=== PATIENT | female | born 1995 | race Hispanic/Latino ===

== ENCOUNTER 2018-03-01 04:10 | Emergency (ER) | payer MEDICAID, OTHER ==
[2018-03-01 05:49] LABS: BILIRUBIN,URINE Negative (NEGATIVE); COLOR,URINE Dark Yellow (YELLOW); GLUCOSE, URINE (UA) Negative (NEGATIVE); KETONES,URINE 40 mg/dL (NEGATIVE); LEUKOCYTE ESTERASE ,URINE Negative (NEGATIVE); NITRATE,URINE Negative (NEGATIVE); OCCULT BLOOD,URINE Negative (NEGATIVE); PH,URINE 5.5 (5.0-8.0); PROTEIN,URINE Trace (NEGATIVE)
[2018-03-01 06:00] LABS: HCG,QUAL RESULT NEGATIVE (NEGATIVE)
[2018-03-01 06:01] LABS: APPEARANCE,URINE HAZY (CLEAR)
[2018-03-01 06:09] LABS: AMORPHOUS SEDIMENT,UR Few /LPF (None Seen); BACTERIA,URINE Few /HPF (None Seen); MUCUS,URINE Many LPF (None Seen); RBC,URINE None Seen /HPF (0-1)
== END 2018-03-01 06:19 | disposition home or self-care (01) ==
LOC: EDH 04:10
DX: S46.811A Strain of other muscles, fascia and tendons at shoulder and upper arm level, right arm, initial encounter (principal); I10 Essential (primary) hypertension; J45.909 Unspecified asthma, uncomplicated; Z88.0 Allergy status to penicillin; Z72.0 Tobacco use; X58.XXXA Exposure to other specified factors, initial encounter; Y93.89 Activity, other specified; Y92.098 Other place in other non-institutional residence as the place of occurrence of the external cause; Y99.8 Other external cause status
CPT/HCPCS: 73030; 81001; 81025

== ENCOUNTER 2020-11-09 01:11 | Inpatient (IN) | payer MEDICAID ==
[~2020-11-09] VITALS: Ht 154.9 cm; Wt 113.4 kg
[2020-11-09] MEDS ORDERED: DIPH,PERTUSS(ACELL),TET VAC/PF 0.5 ML VIAL IM PRN (02:00)
[2020-11-09] MEDS ORDERED: MEASLES/MUMPS/RUBELLA VACCINE, LIVE 0.5 ML/VIAL SQ PRN (02:00)
[2020-11-09] MEDS ORDERED: LANOLIN 30GM OINTMENT TP PRN (02:00)
[2020-11-09] MEDS ORDERED: BENZOCAINE/LANOLIN/ALOE VERA 60 ML AEROSOL TP PRN (02:00)
[2020-11-09] MEDS ORDERED: ACETAMINOPHEN 325 MG TAB PO PRN (02:00)
[2020-11-09] MEDS ORDERED: WITCH HAZEL 1 PAD TP PRN (02:00)
[2020-11-09] MEDS ORDERED: LACTATED RINGERS 1000ML 1,000 ML IV PRN (02:00)
[2020-11-09 02:05] LABS: HEMATOCRIT 35.4 % (36-48); MEAN CORPUSCULAR HEMOGLOBIN 25.9 pg (27.0-33.0); MEAN CORPUSCULAR HGB CONC 31.6 g/dL (32.0-36.0); MEAN CORPUSCULAR VOLUME 81.9 fL (79-99); RED BLOOD CELL COUNT(AUTO) 4.32 MIL/uL (4.00-5.50); RED CELL DISTRIBUTION WIDTH 17.5 % (11.0-15.5)
[2020-11-09 02:12] LABS: INR 0.95 (0.85-1.15); PROTHROMBIN TIME 10.2 SEC (9.6-11.6)
[2020-11-09 02:17] LABS: CREATININE 0.7 mg/dL (0.5-1.5); POTASSIUM 3.2 mmol/L (3.5-5.1)
[2020-11-09 02:22] LABS: ALBUMIN 2.3 g/dL (3.5-5.0); BILIRUBIN,TOTAL 0.4 mg/dL (0.2-1.0); TOTAL PROTEIN, SERUM 6.6 g/dL (6.0-8.3); URIC ACID 6.1 mg/dL (2.6-7.2)
[2020-11-09 03:01] LABS: APPEARANCE,URINE TURBID (CLEAR); BILIRUBIN,URINE SMALL (NEGATIVE); COLOR,URINE RED (YELLOW); GLUCOSE, URINE (UA) 100 mg/dL (NEGATIVE); KETONES,URINE 40 mg/dL (NEGATIVE); LEUKOCYTE ESTERASE ,URINE SMALL (NEGATIVE); NITRATE,URINE POSITIVE (NEGATIVE); OCCULT BLOOD,URINE LARGE (NEGATIVE); PH,URINE 6.5 (5.0-8.0); PROTEIN,URINE >=300 mg/dL (NEGATIVE)
[2020-11-09 03:03] LABS: AMPHET/METH SCREEN,URINE NEGATIVE (NEGATIVE); BARBITURATE SCREEN, URINE NEGATIVE (NEGATIVE); BENZODIAZEPINES SCREEN,URINE POSITIVE (NEGATIVE); CANNABINOID SCREEN,URINE NEGATIVE (NEGATIVE); COCAINE SCREEN,URINE POSITIVE (NEGATIVE); OPIATE SCREEN,URINE NEGATIVE (NEGATIVE); PHENCYCLIDINE SCREEN,URINE NEGATIVE (NEGATIVE)
[2020-11-09 03:06] LABS: BACTERIA,URINE None Seen /HPF (None Seen); RBC,URINE >100 /HPF (0-1); SQUAMOUS EPITHELIAL CELL,UR Rare /HPF (0-2)
[2020-11-09] MEDS: ACETAMINOPHEN WITH CODEINE 1 TAB TAB PO PRN ×2 (03:13→18:54)
[2020-11-09] MEDS: OXYTOCIN-LR 20 UNITS/1000 ML 1,000 ML IV SCH ×2 (03:23→20:23)
[2020-11-09] MEDS ORDERED: LEVOFLOXACIN 500 MG/D5W 100 ML 100 ML IV SCH ×2 (03:45→07:15)
[2020-11-09 04:25] VITALS: BP 133/53
[2020-11-09] MEDS ORDERED: ESCI20TA38 PO (05:48)
[2020-11-09] MEDS ORDERED: MELO-108 PO (05:48)
[2020-11-09] MEDS ORDERED: QUET100T34 PO (05:48)
[2020-11-09] MEDS ORDERED: CLON1TAB23 PO (05:48)
[2020-11-09] MEDS ORDERED: LURA40TA PO (05:48)
[2020-11-09] MEDS ORDERED: FERRALET PO (05:48)
[2020-11-09] MEDS ORDERED: PNV#1CAP15 PO (05:48)
[2020-11-09 07:36] VITALS: BP 127/63
[2020-11-09 08:23] LABS: RAPID PLASMA REAGIN NONREACTIVE (NONREACTIVE)
[2020-11-09] MEDS: DOCUSATE SODIUM 100 MG CAP PO SCH ×2 (10:03→20:39)
[2020-11-09] MEDS: IBUPROFEN 600 MG TABLET PO PRN (10:04)
[2020-11-09 11:26] VITALS: BP 110/69
[2020-11-09 16:00] VITALS: BP 128/65
[2020-11-09] MEDS ORDERED: FLU VACC QS2020-21(6MOS UP)/PF 60 MCG/0.5 ML ML IM ONE ×2 (18:58→20:00)
[2020-11-09 19:50] VITALS: BP 118/75
[2020-11-09 23:00] VITALS: BP 127/81
[2020-11-10 03:10] VITALS: BP 132/83
[2020-11-10 07:17] LABS: HEPATITIS Bs ANTIGEN SCREEN P Negative (Negative)
[2020-11-10 07:25] VITALS: BP 117/79
[2020-11-10] MEDS ORDERED: LEVOFLOXACIN 500 MG/D5W 100 ML 100 ML IV SCH (09:00)
[2020-11-10] MEDS: DOCUSATE SODIUM 100 MG CAP PO SCH (09:37)
[2020-11-10] MEDS: IBUPROFEN 600 MG TABLET PO PRN (09:38)
[2020-11-10 11:04] VITALS: BP 117/67
== END 2020-11-10 15:20 | disposition home or self-care (01) | DRG 560 ==
LOC: LDH 01:11 → WSH 04:20
PROVIDERS: ADMIT Specialist; ATTEND Specialist
PROC: 3E02340 Introduction of Influenza Vaccine into Muscle, Percutaneous Approach (ICD-10-PCS; principal; 2020-11-09)
PROC: 3E0234Z Introduction of Serum, Toxoid and Vaccine into Muscle, Percutaneous Approach (ICD-10-PCS; 2020-11-09)
PROC: 3E0134Z Introduction of Serum, Toxoid and Vaccine into Subcutaneous Tissue, Percutaneous Approach (ICD-10-PCS; 2020-11-09)
DX: Z39.0 Encounter for care and examination of mother immediately after delivery (principal); F90.9 Attention-deficit hyperactivity disorder, unspecified type; F31.9 Bipolar disorder, unspecified; F41.9 Anxiety disorder, unspecified; Z37.0 Single live birth; Z88.0 Allergy status to penicillin; Z23 Encounter for immunization; O99.345 Other mental disorders complicating the puerperium; O99.53 Diseases of the respiratory system complicating the puerperium; J45.909 Unspecified asthma, uncomplicated
CPT/HCPCS: 36415; 80053; 80305; 81001; 84550; 85027; 85384; 85610; 85730; 86592; 86701; 86850; 86900; 86901; 87088; 87340; 87390; 90715; A4351; G0378; J1956; J2590; Q2035

== ENCOUNTER 2022-02-01 10:08 | Emergency (ER) | payer MEDICAID ==
[~2022-02-01] VITALS: Ht 154.9 cm; Wt 81.6 kg
[~2022-02-01 10:08] MED LIST: CLON1TAB23 PO; ESCI20TA38 PO; FERRALET PO; LURA40TA2 PO; MELO-108 PO; PNV#1CAP15 PO; QUET100T34 PO
[2022-02-01 10:42] LABS: EOSINOPHILS % (AUTO) 3.3 % (0.0-8.0); HEMATOCRIT 41.3 % (36-48); LYMPHOCYTES % (AUTO) 26.8 % (21.0-51.0); MEAN CORPUSCULAR HEMOGLOBIN 26.3 pg (27.0-33.0); MEAN CORPUSCULAR VOLUME 82.3 fL (79-99); MONOCYTES % (AUTO) 7.2 % (3.0-13.0); NEUTROPHILS % (AUTO) 61.2 % (40.0-77.0); PLATELET COUNT (AUTO) 298 K/uL (130-400); RED BLOOD CELL COUNT(AUTO) 5.02 MIL/uL (4.00-5.50); RED CELL DISTRIBUTION WIDTH 14.3 % (11.0-15.5); WHITE BLOOD COUNT (AUTO) 5.8 K/uL (4.8-10.8)
[2022-02-01 10:45] LABS: APPEARANCE,URINE CLEAR (CLEAR); BILIRUBIN,URINE NEGATIVE (NEGATIVE); COLOR,URINE YELLOW (YELLOW); GLUCOSE, URINE (UA) NEGATIVE (NEGATIVE); KETONES,URINE NEGATIVE (NEGATIVE); LEUKOCYTE ESTERASE ,URINE SMALL (NEGATIVE); NITRATE,URINE NEGATIVE (NEGATIVE); OCCULT BLOOD,URINE LARGE (NEGATIVE); PROTEIN,URINE NEGATIVE (NEGATIVE); UROBILINOGEN,URINE 0.2 mg/dL (0.2-1.0)
[2022-02-01] MEDS ORDERED: LEVETIRACETAM 500 MG/5 ML SD VIAL IV STA (10:46)
[2022-02-01 10:54] LABS: AMPHET/METH SCREEN,URINE NEGATIVE (NEGATIVE); BARBITURATE SCREEN, URINE NEGATIVE (NEGATIVE); BENZODIAZEPINES SCREEN,URINE NEGATIVE (NEGATIVE); CANNABINOID SCREEN,URINE NEGATIVE (NEGATIVE); COCAINE SCREEN,URINE NEGATIVE (NEGATIVE); OPIATE SCREEN,URINE NEGATIVE (NEGATIVE); PHENCYCLIDINE SCREEN,URINE NEGATIVE (NEGATIVE)
[2022-02-01] MEDS ORDERED: LEVETIRACETAM 500 MG in 0.9%NACL 100ML 100 ML IV SCH (11:00)
[2022-02-01 11:07] LABS: PHENYTOIN (DILANTIN) 7.1 mcg/mL (10.0-20.0)
[2022-02-01 11:23] LABS: ALANINE AMINOTRANSFERASE 169 U/L (12-78); ALBUMIN 3.3 g/dL (3.5-5.0); ASPARTATE AMINOTRANSFERASE 77 U/L (10-37); BILIRUBIN,TOTAL 0.1 mg/dL (0.2-1.0); CARBAMAZEPINE (TEGRETOL) < 0.5 mcg/mL (4.0-12.0); CARBON DIOXIDE 27 mmol/L (21-32); CHLORIDE 106 mmol/L (101-111); CREATININE 0.7 mg/dL (0.5-1.5); GLOMERULAR FILTR. RATE CALC 109 mL/min (>60); GLUCOSE,RANDOM 88 mg/dL (70-105); PHENOBARBITAL < 1 mcg/mL (15-40); POTASSIUM 4.4 mmol/L (3.5-5.1); SODIUM SERUM 140 mmol/L (136-145); TOTAL PROTEIN, SERUM 7.4 g/dL (6.0-8.3); UREA NITROGEN, BLOOD 14 mg/dL (7-18)
[2022-02-01 11:25] LABS: VALPROIC ACID < 3 mcg/mL (50-100)
[2022-02-01 11:33] LABS: RBC,URINE 0-1 /HPF (0-1); WBC,URINE 0-1 /HPF (0-1)
[2022-02-01 11:34] LABS: BACTERIA,URINE Few /HPF (None Seen)
[2022-02-01 12:37] VITALS: BP 133/79
== END 2022-02-01 12:39 | disposition home or self-care (01) ==
LOC: EDH 10:08
DX: G40.909 Epilepsy, unspecified, not intractable, without status epilepticus (principal); K76.0 Fatty (change of) liver, not elsewhere classified; J45.909 Unspecified asthma, uncomplicated; F31.9 Bipolar disorder, unspecified; F20.9 Schizophrenia, unspecified; Z79.1 Long term (current) use of non-steroidal anti-inflammatories (NSAID); Z88.0 Allergy status to penicillin
CPT/HCPCS: 36415; 80053; 80156; 80164; 80184; 80185; 80305; 81001; 85025; 96374; 99284; J1953

== ENCOUNTER 2022-02-08 13:53 | Emergency (ER) | payer MEDICAID ==
[~2022-02-08] VITALS: Ht 154.9 cm; Wt 86.2 kg
[2022-02-08 13:56] VITALS: BP 117/84
[2022-02-08] MEDS ORDERED: ACETAMINOPHEN 500 MG TABLET PO ONE (14:30)
[2022-02-08] MEDS ORDERED: TETANUS/DIPHTHERIA TOXOID [ADULT] 0.5 ML VIAL IM ONE (14:30)
[2022-02-08 14:44] LABS: BASOPHILS % (AUTO) 0.9 % (0.0-5.0); EOSINOPHILS % (AUTO) 2.3 % (0.0-8.0); HEMATOCRIT 34.4 % (36-48); MEAN CORPUSCULAR HEMOGLOBIN 26.2 pg (27.0-33.0); MEAN CORPUSCULAR HGB CONC 31.4 g/dL (32.0-36.0); MEAN CORPUSCULAR VOLUME 83.3 fL (79-99); NEUTROPHILS % (AUTO) 69.3 % (40.0-77.0); PLATELET COUNT (AUTO) 334 K/uL (130-400); RED BLOOD CELL COUNT(AUTO) 4.13 MIL/uL (4.00-5.50); RED CELL DISTRIBUTION WIDTH 14.8 % (11.0-15.5); WHITE BLOOD COUNT (AUTO) 6.4 K/uL (4.8-10.8)
[2022-02-08 14:52] LABS: CARBON DIOXIDE 24 mmol/L (21-32); CHLORIDE 110 mmol/L (101-111); CREATININE 0.7 mg/dL (0.5-1.5); GLOMERULAR FILTR. RATE CALC 109 mL/min (>60); GLUCOSE,RANDOM 88 mg/dL (70-105); POTASSIUM 4.1 mmol/L (3.5-5.1); SODIUM SERUM 141 mmol/L (136-145); UREA NITROGEN, BLOOD 24 mg/dL (7-18)
[2022-02-08 14:56] LABS: ALANINE AMINOTRANSFERASE 129 U/L (12-78); ALBUMIN 2.8 g/dL (3.5-5.0); ASPARTATE AMINOTRANSFERASE 88 U/L (10-37); PHENYTOIN (DILANTIN) 3.1 mcg/mL (10.0-20.0); TOTAL PROTEIN, SERUM 6.2 g/dL (6.0-8.3)
[2022-02-08] MEDS ORDERED: IBUP-2070 PO (15:12)
[2022-02-08] MEDS ORDERED: LEVETIRACETAM 500 MG/5 ML SD VIAL IV ONE (15:16)
[2022-02-08 15:17] LABS: BILIRUBIN,TOTAL < 0.1 mg/dL (0.2-1.0)
[2022-02-08] MEDS ORDERED: PHENYTOIN 100MG (50MG/ML) INJ 100 MG/2 ML ML IV SCH (15:30)
[2022-02-08] MEDS ORDERED: PHENYTOIN SODIUM 100 MG ERCAP PO SCH (16:30)
[2022-02-08] MEDS ORDERED: LEVETIRACETAM 1,500 MG in 0.9%NACL 100ML 100 ML IV SCH (22:00)
== END 2022-02-08 16:59 | disposition home or self-care (01) ==
LOC: EDH 13:53
DX: S16.1XXA Strain of muscle, fascia and tendon at neck level, initial encounter (principal); S30.0XXA Contusion of lower back and pelvis, initial encounter; S00.81XA Abrasion of other part of head, initial encounter; R56.9 Unspecified convulsions; W18.39XA Other fall on same level, initial encounter; Y93.89 Activity, other specified; Y92.89 Other specified places as the place of occurrence of the external cause; Y99.8 Other external cause status
CPT/HCPCS: 36415; 70450; 70486; 72100; 72125; 80053; 80185; 84703; 85025; 90471; 90714; 96365; 99285; J1953

== ENCOUNTER 2022-02-13 04:34 | Emergency (ER) | payer MEDICAID, OTHER ==
[~2022-02-13] VITALS: Ht 154.9 cm; Wt 81.6 kg
[~2022-02-13 04:34] MED LIST changes: +IBUP-2070 PO
[2022-02-13] MEDS ORDERED: LEVETIRACETAM 500 MG/5 ML SD VIAL IV ONE (04:47)
[2022-02-13 04:54] LABS: BASOPHILS % (AUTO) 0.9 % (0.0-5.0); EOSINOPHILS % (AUTO) 2.5 % (0.0-8.0); HEMATOCRIT 34.5 % (36-48); MEAN CORPUSCULAR HEMOGLOBIN 26.4 pg (27.0-33.0); MEAN CORPUSCULAR VOLUME 85.2 fL (79-99); MONOCYTES % (AUTO) 5.9 % (3.0-13.0); NEUTROPHILS % (AUTO) 63.3 % (40.0-77.0); PLATELET COUNT (AUTO) 364 K/uL (130-400); RED BLOOD CELL COUNT(AUTO) 4.05 MIL/uL (4.00-5.50); WHITE BLOOD COUNT (AUTO) 7.6 K/uL (4.8-10.8)
[2022-02-13] MEDS ORDERED: PHENYTOIN IV ONE (05:00)
[2022-02-13] MEDS ORDERED: NACL 0.9% IV ONE (05:00)
[2022-02-13] MEDS ORDERED: LORAZEPAM 2 MG/ML 1 ML VIAL IVP ONE (05:00)
[2022-02-13 05:05] LABS: CREATININE 0.5 mg/dL (0.5-1.5); POTASSIUM 3.8 mmol/L (3.5-5.1)
[2022-02-13 05:10] LABS: ALBUMIN 3.1 g/dL (3.5-5.0); BILIRUBIN,TOTAL 0.1 mg/dL (0.2-1.0); PHENYTOIN (DILANTIN) 7.8 mcg/mL (10.0-20.0); TOTAL PROTEIN, SERUM 6.7 g/dL (6.0-8.3)
[2022-02-13] MEDS ORDERED: PHENYTOIN SODIUM 250MG (50 MG/ML) VIAL ONE (05:17)
[2022-02-13] MEDS ORDERED: PHEN100C23 PO (05:55)
[2022-02-13] MEDS ORDERED: LEVE-43 PO (05:55)
[2022-02-13] MEDS ORDERED: LEVETIRACETAM 1,000 MG in 0.9%NACL 100ML 100 ML IV ONE (06:00)
[2022-02-13 06:26] VITALS: BP 132/82
[2022-02-13] MEDS ORDERED: ACET325C6 PO (15:22)
[2022-02-13] MEDS ORDERED: LEVE10006 PO (15:22)
== END 2022-02-13 06:49 ==
LOC: EDH 04:34
DX: S00.03XA Contusion of scalp, initial encounter (principal); S09.90XA Unspecified injury of head, initial encounter; R56.9 Unspecified convulsions; J45.909 Unspecified asthma, uncomplicated; I10 Essential (primary) hypertension; Z91.14 Patient's other noncompliance with medication regimen; Z88.0 Allergy status to penicillin; Z79.899 Other long term (current) drug therapy; W18.39XA Other fall on same level, initial encounter; Y93.89 Activity, other specified; Y92.89 Other specified places as the place of occurrence of the external cause; Y99.8 Other external cause status
CPT/HCPCS: 36415; 80053; 80185; 84703; 85025; 96365; 96368; 96375; 99284; J1165; J1953; J2060

== ENCOUNTER 2022-02-13 10:40 | Emergency (ER) | payer OTHER ==
[~2022-02-13 10:40] MED LIST changes: +LEVE-43 PO; +PHEN100C23 PO
[2022-02-13 11:04] LABS: BASOPHILS % (AUTO) 1.4 % (0.0-5.0); EOSINOPHILS % (AUTO) 2.5 % (0.0-8.0); HEMATOCRIT 33.5 % (36-48); LYMPHOCYTES % (AUTO) 24.1 % (21.0-51.0); MEAN CORPUSCULAR HEMOGLOBIN 25.7 pg (27.0-33.0); MEAN CORPUSCULAR VOLUME 82.7 fL (79-99); MONOCYTES % (AUTO) 8.5 % (3.0-13.0); NEUTROPHILS % (AUTO) 63.1 % (40.0-77.0); PLATELET COUNT (AUTO) 347 K/uL (130-400); RED BLOOD CELL COUNT(AUTO) 4.05 MIL/uL (4.00-5.50); RED CELL DISTRIBUTION WIDTH 15.1 % (11.0-15.5); WHITE BLOOD COUNT (AUTO) 5.5 K/uL (4.8-10.8)
[2022-02-13 11:15] LABS: CREATININE 0.5 mg/dL (0.5-1.5); POTASSIUM 3.6 mmol/L (3.5-5.1)
[2022-02-13 11:19] LABS: ALBUMIN 2.9 g/dL (3.5-5.0); BILIRUBIN,TOTAL 0.1 mg/dL (0.2-1.0); PHENYTOIN (DILANTIN) 16.3 mcg/mL (10.0-20.0); TOTAL PROTEIN, SERUM 6.3 g/dL (6.0-8.3)
[2022-02-13] MEDS ORDERED: 0.9%NACL 1000ML 1,000 ML IV SCH (12:00)
[2022-02-13 12:03] LABS: AMPHET/METH SCREEN,URINE NEGATIVE (NEGATIVE); BARBITURATE SCREEN, URINE NEGATIVE (NEGATIVE); BENZODIAZEPINES SCREEN,URINE NEGATIVE (NEGATIVE); CANNABINOID SCREEN,URINE NEGATIVE (NEGATIVE); COCAINE SCREEN,URINE NEGATIVE (NEGATIVE); OPIATE SCREEN,URINE NEGATIVE (NEGATIVE); PHENCYCLIDINE SCREEN,URINE NEGATIVE (NEGATIVE)
[2022-02-13] MEDS ORDERED: LEVETIRACETAM 500 MG/5 ML SD VIAL IV SCH (12:30)
[2022-02-13] MEDS ORDERED: LEVETIRACETAM 1,000 MG in 0.9%NACL 100ML 100 ML IV SCH (12:30)
[2022-02-13] MEDS ORDERED: LEVE10006 PO (15:22)
[2022-02-13] MEDS ORDERED: ACET325C6 PO (15:22)
[2022-02-13 16:24] VITALS: BP 136/82
== END 2022-02-13 16:25 | disposition home or self-care (01) ==
LOC: EDH 10:40
DX: G40.909 Epilepsy, unspecified, not intractable, without status epilepticus (principal); Z88.0 Allergy status to penicillin; Z79.899 Other long term (current) drug therapy
CPT/HCPCS: 36415; 70450; 73560; 80053; 80177; 80185; 80305; 85025; 96361; 96365; 96366; 99285; J1953

== ENCOUNTER 2022-02-14 21:30 | Emergency (ER) | payer MEDICAID, OTHER ==
[~2022-02-14] VITALS: Ht 154.9 cm; Wt 81.6 kg
[~2022-02-14 21:30] MED LIST changes: +ACET325C6 PO; +LEVE10006 PO
[2022-02-14] MEDS ORDERED: LEVETIRACETAM 500 MG/5 ML SD VIAL IV ONE (21:49)
[2022-02-14 21:55] LABS: APPEARANCE,URINE Clear (CLEAR); BASOPHILS % (AUTO) 0.9 % (0.0-5.0); BILIRUBIN,URINE Negative (NEGATIVE); COLOR,URINE Yellow (YELLOW); EOSINOPHILS % (AUTO) 2.7 % (0.0-8.0); GLUCOSE, URINE (UA) Negative (NEGATIVE); HEMATOCRIT 34.9 % (36-48); KETONES,URINE Negative (NEGATIVE); LEUKOCYTE ESTERASE ,URINE Large (NEGATIVE); LYMPHOCYTES % (AUTO) 28.9 % (21.0-51.0); MEAN CORPUSCULAR HEMOGLOBIN 25.5 pg (27.0-33.0); MEAN CORPUSCULAR HGB CONC 30.4 g/dL (32.0-36.0); MEAN CORPUSCULAR VOLUME 84.1 fL (79-99); MONOCYTES % (AUTO) 6.5 % (3.0-13.0); NEUTROPHILS % (AUTO) 60.5 % (40.0-77.0); NITRATE,URINE Negative (NEGATIVE); OCCULT BLOOD,URINE Negative (NEGATIVE); PH,URINE 6.5 (5.0-8.0); PLATELET COUNT (AUTO) 361 K/uL (130-400); PROTEIN,URINE Negative (NEGATIVE); RED BLOOD CELL COUNT(AUTO) 4.15 MIL/uL (4.00-5.50); RED CELL DISTRIBUTION WIDTH 15.4 % (11.0-15.5); UROBILINOGEN,URINE 0.2 mg/dL (0.2-1.0); WHITE BLOOD COUNT (AUTO) 6.6 K/uL (4.8-10.8)
[2022-02-14 21:57] LABS: HCG,QUAL RESULT NEGATIVE (NEGATIVE)
[2022-02-14] MEDS ORDERED: LEVETIRACETAM 500 MG/5 ML SD VIAL IV SCH (22:00)
[2022-02-14 22:04] LABS: BACTERIA,URINE Few /HPF (None Seen); MUCUS,URINE Few LPF (None Seen); SQUAMOUS EPITHELIAL CELL,UR Few /HPF (0-2); TRICHOMONAS,URINE Moderate /LPF (None Seen)
[2022-02-14 22:10] LABS: CREATININE 0.6 mg/dL (0.5-1.5); POTASSIUM 3.4 mmol/L (3.5-5.1)
[2022-02-14 22:15] LABS: ALBUMIN 3.1 g/dL (3.5-5.0); PHENYTOIN (DILANTIN) 10.2 mcg/mL (10.0-20.0); TOTAL PROTEIN, SERUM 6.6 g/dL (6.0-8.3)
[2022-02-14 22:41] LABS: BILIRUBIN,TOTAL 0.1 mg/dL (0.2-1.0)
[2022-02-14] MEDS ORDERED: PHENYTOIN 100MG (50MG/ML) INJ 100 MG/2 ML ML IV ONE (23:00)
[2022-02-14] MEDS ORDERED: PHENYTOIN SODIUM 250MG (50 MG/ML) VIAL ONE (23:20)
[2022-02-15 00:47] VITALS: BP 126/74
== END 2022-02-15 00:53 | disposition home or self-care (01) ==
LOC: EDH 21:30
DX: G40.909 Epilepsy, unspecified, not intractable, without status epilepticus (principal); I10 Essential (primary) hypertension; J45.909 Unspecified asthma, uncomplicated; Z88.0 Allergy status to penicillin; Z79.899 Other long term (current) drug therapy
CPT/HCPCS: 36415; 70450; 72100; 72125; 80053; 80185; 81001; 81025; 85025; 87088; 93005; 96365; 96375; 99285; J1165; J1953

== ENCOUNTER 2022-02-15 13:10 | Emergency (ER) | payer MEDICAID ==
[~2022-02-15] VITALS: Ht 154.9 cm; Wt 81.6 kg
[2022-02-15 14:10] VITALS: BP 128/71
== END 2022-02-15 13:55 | disposition home or self-care (01) ==
LOC: EDH 13:10
DX: R56.9 Unspecified convulsions (principal); F41.9 Anxiety disorder, unspecified; I10 Essential (primary) hypertension; J45.909 Unspecified asthma, uncomplicated; Z88.0 Allergy status to penicillin; Z79.1 Long term (current) use of non-steroidal anti-inflammatories (NSAID); Z79.899 Other long term (current) drug therapy

== ENCOUNTER 2022-04-09 00:03 | Emergency (ER) | payer MEDICAID, OTHER ==
[2022-04-09 01:09] LABS: BASOPHILS % (AUTO) 0.4 % (0.0-5.0); EOSINOPHILS % (AUTO) 0.7 % (0.0-8.0); HEMATOCRIT 38.2 % (36-48); MEAN CORPUSCULAR HEMOGLOBIN 26.6 pg (27.0-33.0); MEAN CORPUSCULAR HGB CONC 31.9 g/dL (32.0-36.0); MEAN CORPUSCULAR VOLUME 83.2 fL (79-99); MONOCYTES % (AUTO) 5.4 % (3.0-13.0); NEUTROPHILS % (AUTO) 74.1 % (40.0-77.0); PLATELET COUNT (AUTO) 330 K/uL (130-400); RED BLOOD CELL COUNT(AUTO) 4.59 MIL/uL (4.00-5.50); RED CELL DISTRIBUTION WIDTH 14.5 % (11.0-15.5); WHITE BLOOD COUNT (AUTO) 8.4 K/uL (4.8-10.8)
[2022-04-09 01:15] LABS: APPEARANCE,URINE CLEAR (CLEAR); BILIRUBIN,URINE NEGATIVE (NEGATIVE); COLOR,URINE YELLOW (YELLOW); GLUCOSE, URINE (UA) NEGATIVE (NEGATIVE); KETONES,URINE NEGATIVE (NEGATIVE); LEUKOCYTE ESTERASE ,URINE SMALL (NEGATIVE); NITRATE,URINE NEGATIVE (NEGATIVE); OCCULT BLOOD,URINE NEGATIVE (NEGATIVE); PROTEIN,URINE NEGATIVE (NEGATIVE); UROBILINOGEN,URINE 0.2 mg/dL (0.2-1.0)
[2022-04-09 01:20] LABS: AMPHET/METH SCREEN,URINE NEGATIVE (NEGATIVE); BARBITURATE SCREEN, URINE NEGATIVE (NEGATIVE); BENZODIAZEPINES SCREEN,URINE NEGATIVE (NEGATIVE); CANNABINOID SCREEN,URINE NEGATIVE (NEGATIVE); COCAINE SCREEN,URINE NEGATIVE (NEGATIVE); OPIATE SCREEN,URINE NEGATIVE (NEGATIVE); PHENCYCLIDINE SCREEN,URINE NEGATIVE (NEGATIVE)
[2022-04-09 01:21] LABS: CREATININE 0.6 mg/dL (0.5-1.5); POTASSIUM 3.9 mmol/L (3.5-5.1)
[2022-04-09 01:26] LABS: ALBUMIN 3.6 g/dL (3.5-5.0); BILIRUBIN,TOTAL 0.1 mg/dL (0.2-1.0); PHENYTOIN (DILANTIN) 4.8 mcg/mL (10.0-20.0); TOTAL PROTEIN, SERUM 7.1 g/dL (6.0-8.3)
[2022-04-09 01:32] LABS: BACTERIA,URINE Rare /HPF (None Seen); MUCUS,URINE Few LPF (None Seen); RBC,URINE None Seen /HPF (0-1)
[2022-04-09] MEDS ORDERED: FOSPHENYTOIN SODIUM 100 MG/2 ML VIAL IV SCH (04:30)
[2022-04-09] MEDS ORDERED: FOSPHENYTOIN SODIUM 500 MG/10ML VIAL IJ ONE (04:44)
[2022-04-09 05:52] VITALS: BP 151/77
== END 2022-04-09 07:03 | disposition home or self-care (01) ==
LOC: EDH 00:03
DX: G40.909 Epilepsy, unspecified, not intractable, without status epilepticus (principal); I10 Essential (primary) hypertension; J45.909 Unspecified asthma, uncomplicated; Z88.0 Allergy status to penicillin; Z79.1 Long term (current) use of non-steroidal anti-inflammatories (NSAID); Z79.899 Other long term (current) drug therapy
CPT/HCPCS: 36415; 70450; 80053; 80185; 80305; 81001; 81025; 85025; 96374; 99284; Q2009

== ENCOUNTER 2022-06-18 05:12 | Emergency (ER) | payer OTHER ==
[~2022-06-18] VITALS: Ht 154.9 cm; Wt 81.6 kg
[2022-06-18 05:26] VITALS: BP 131/97
[2022-06-18 05:41] LABS: BASOPHILS % (AUTO) 0.3 % (0.0-5.0); EOSINOPHILS % (AUTO) 2.1 % (0.0-8.0); HEMATOCRIT 34.7 % (36-48); MEAN CORPUSCULAR HEMOGLOBIN 27.1 pg (27.0-33.0); MEAN CORPUSCULAR HGB CONC 32.6 g/dL (32.0-36.0); MEAN CORPUSCULAR VOLUME 83.2 fL (79-99); MONOCYTES % (AUTO) 5.7 % (3.0-13.0); NEUTROPHILS % (AUTO) 67.6 % (40.0-77.0); PLATELET COUNT (AUTO) 296 K/uL (130-400); RED BLOOD CELL COUNT(AUTO) 4.17 MIL/uL (4.00-5.50)
[2022-06-18 05:46] LABS: CREATININE 0.6 mg/dL (0.5-1.5)
[2022-06-18 05:50] LABS: ALBUMIN 3.3 g/dL (3.5-5.0); PHENYTOIN (DILANTIN) 21.7 mcg/mL (10.0-20.0); TOTAL PROTEIN, SERUM 6.6 g/dL (6.0-8.3)
[2022-06-18] MEDS ORDERED: KCL 20 MEQ ERTAB PO ONE ×2 (06:21→06:30)
== END 2022-06-18 07:29 | disposition home or self-care (01) ==
LOC: EDH 05:12
DX: G40.909 Epilepsy, unspecified, not intractable, without status epilepticus (principal); E87.6 Hypokalemia; I10 Essential (primary) hypertension; J45.909 Unspecified asthma, uncomplicated; Z79.1 Long term (current) use of non-steroidal anti-inflammatories (NSAID); Z79.899 Other long term (current) drug therapy; Z88.0 Allergy status to penicillin
CPT/HCPCS: 36415; 80053; 80185; 85025

== ENCOUNTER 2022-06-21 12:40 | Emergency (ER) | payer OTHER ==
[2022-06-21 13:00] LABS: BASOPHILS % (AUTO) 0.6 % (0.0-5.0); EOSINOPHILS % (AUTO) 2.2 % (0.0-8.0); HEMATOCRIT 36.2 % (36-48); LYMPHOCYTES % (AUTO) 33.5 % (21.0-51.0); MEAN CORPUSCULAR HEMOGLOBIN 27.1 pg (27.0-33.0); MEAN CORPUSCULAR HGB CONC 32.6 g/dL (32.0-36.0); MONOCYTES % (AUTO) 8.2 % (3.0-13.0); NEUTROPHILS % (AUTO) 55.1 % (40.0-77.0); PLATELET COUNT (AUTO) 318 K/uL (130-400); RED BLOOD CELL COUNT(AUTO) 4.36 MIL/uL (4.00-5.50); RED CELL DISTRIBUTION WIDTH 13.9 % (11.0-15.5)
[2022-06-21 13:01] LABS: APPEARANCE,URINE CLEAR (CLEAR); BILIRUBIN,URINE NEGATIVE (NEGATIVE); COLOR,URINE STRAW (YELLOW); GLUCOSE, URINE (UA) NEGATIVE (NEGATIVE); KETONES,URINE NEGATIVE (NEGATIVE); LEUKOCYTE ESTERASE ,URINE NEGATIVE (NEGATIVE); NITRATE,URINE NEGATIVE (NEGATIVE); OCCULT BLOOD,URINE NEGATIVE (NEGATIVE); PH,URINE 6.5 (5.0-8.0); PROTEIN,URINE NEGATIVE (NEGATIVE); UROBILINOGEN,URINE 0.2 mg/dL (0.2-1.0)
[2022-06-21 13:14] LABS: CARBON DIOXIDE 26 mmol/L (21-32); CHLORIDE 105 mmol/L (101-111); CREATININE 0.6 mg/dL (0.5-1.5); GLOMERULAR FILTR. RATE CALC 129 mL/min (>60); GLUCOSE,RANDOM 89 mg/dL (70-105); POTASSIUM 3.9 mmol/L (3.5-5.1); SODIUM SERUM 141 mmol/L (136-145); UREA NITROGEN, BLOOD 17 mg/dL (7-18)
[2022-06-21 13:19] LABS: ALANINE AMINOTRANSFERASE 47 U/L (12-78); ALBUMIN 3.6 g/dL (3.5-5.0); ASPARTATE AMINOTRANSFERASE 25 U/L (10-37); PHENYTOIN (DILANTIN) 23.8 mcg/mL (10.0-20.0); TOTAL PROTEIN, SERUM 7.2 g/dL (6.0-8.3)
[2022-06-21 13:37] LABS: VALPROIC ACID < 3 mcg/mL (50-100)
[2022-06-21 14:37] VITALS: BP 132/78
[2022-06-21] MEDS ORDERED: ACETAMINOPHEN 325 MG TAB ONE (15:13)
== END 2022-06-21 16:51 ==
LOC: EDH 12:40 → EEVIPCON 12:40 → EDH 16:51
DX: G40.909 Epilepsy, unspecified, not intractable, without status epilepticus (principal); Z88.0 Allergy status to penicillin; Z79.899 Other long term (current) drug therapy
CPT/HCPCS: 36415; 80053; 80164; 80177; 80185; 81003; 85025

== ENCOUNTER 2022-06-23 10:10 | Emergency (ER) | payer OTHER ==
[~2022-06-23] VITALS: Ht 154.9 cm; Wt 81.6 kg
[2022-06-23 10:28] LABS: BASOPHILS % (AUTO) 0.6 % (0.0-5.0); EOSINOPHILS % (AUTO) 3.3 % (0.0-8.0); HEMATOCRIT 34.7 % (36-48); LYMPHOCYTES % (AUTO) 25.4 % (21.0-51.0); MEAN CORPUSCULAR HEMOGLOBIN 26.9 pg (27.0-33.0); MEAN CORPUSCULAR HGB CONC 32.3 g/dL (32.0-36.0); MEAN CORPUSCULAR VOLUME 83.4 fL (79-99); MONOCYTES % (AUTO) 8.8 % (3.0-13.0); NEUTROPHILS % (AUTO) 61.5 % (40.0-77.0); PLATELET COUNT (AUTO) 285 K/uL (130-400); RED BLOOD CELL COUNT(AUTO) 4.16 MIL/uL (4.00-5.50); RED CELL DISTRIBUTION WIDTH 14.2 % (11.0-15.5); WHITE BLOOD COUNT (AUTO) 4.9 K/uL (4.8-10.8)
[2022-06-23 10:49] LABS: ALANINE AMINOTRANSFERASE 32 U/L (12-78); ALBUMIN 3.1 g/dL (3.5-5.0); ASPARTATE AMINOTRANSFERASE 16 U/L (10-37); CARBON DIOXIDE 26 mmol/L (21-32); CHLORIDE 108 mmol/L (101-111); CREATININE 0.6 mg/dL (0.5-1.5); GLOMERULAR FILTR. RATE CALC 129 mL/min (>60); GLUCOSE,RANDOM 97 mg/dL (70-105); POTASSIUM 3.6 mmol/L (3.5-5.1); SODIUM SERUM 143 mmol/L (136-145); TOTAL PROTEIN, SERUM 6.2 g/dL (6.0-8.3); UREA NITROGEN, BLOOD 16 mg/dL (7-18)
[2022-06-23 10:54] LABS: VALPROIC ACID < 3 mcg/mL (50-100)
[2022-06-23 10:58] LABS: AMPHET/METH SCREEN,URINE NEGATIVE (NEGATIVE); BENZODIAZEPINES SCREEN,URINE NEGATIVE (NEGATIVE); CANNABINOID SCREEN,URINE NEGATIVE (NEGATIVE); COCAINE SCREEN,URINE NEGATIVE (NEGATIVE); PHENCYCLIDINE SCREEN,URINE NEGATIVE (NEGATIVE)
[2022-06-23 10:59] LABS: BARBITURATE SCREEN, URINE POSITIVE (NEGATIVE)
[2022-06-23 11:07] LABS: PHENYTOIN (DILANTIN) 18.8 mcg/mL (10.0-20.0)
[2022-06-23] MEDS ORDERED: LEVETIRACETAM 500 MG/5 ML SD VIAL IV SCH (11:55)
[2022-06-23 12:23] VITALS: BP 105/60
[2022-06-23] MEDS ORDERED: LEVETIRACETAM 500 MG in 0.9%NACL 100ML 100 ML IV SCH (12:30)
== END 2022-06-23 13:07 | disposition home or self-care (01) ==
LOC: EDH 10:10 → EEVIPCON 10:10 → EDH 13:07
DX: G40.909 Epilepsy, unspecified, not intractable, without status epilepticus (principal); R51.9 Headache, unspecified; Z88.0 Allergy status to penicillin; Z79.899 Other long term (current) drug therapy; Z79.1 Long term (current) use of non-steroidal anti-inflammatories (NSAID)
CPT/HCPCS: 99284; 96365; 70450; 80164; 80185; 80053; 80305; 84703; 85025; 36415; J1953

== ENCOUNTER 2022-06-28 10:48 | Emergency (ER) | payer OTHER ==
[~2022-06-28] VITALS: Ht 154.9 cm; Wt 81.6 kg
[2022-06-28] MEDS ORDERED: LORAZEPAM 2 MG/ML 1 ML VIAL IVP ONE (11:30)
[2022-06-28 11:34] LABS: BASOPHILS % (AUTO) 0.5 % (0.0-5.0); EOSINOPHILS % (AUTO) 2.3 % (0.0-8.0); HEMATOCRIT 34.5 % (36-48); LYMPHOCYTES % (AUTO) 27.5 % (21.0-51.0); MEAN CORPUSCULAR HEMOGLOBIN 26.9 pg (27.0-33.0); MEAN CORPUSCULAR HGB CONC 31.9 g/dL (32.0-36.0); MEAN CORPUSCULAR VOLUME 84.4 fL (79-99); MONOCYTES % (AUTO) 10.1 % (3.0-13.0); NEUTROPHILS % (AUTO) 59.1 % (40.0-77.0); PLATELET COUNT (AUTO) 269 K/uL (130-400); RED BLOOD CELL COUNT(AUTO) 4.09 MIL/uL (4.00-5.50); RED CELL DISTRIBUTION WIDTH 13.7 % (11.0-15.5); WHITE BLOOD COUNT (AUTO) 4.4 K/uL (4.8-10.8)
[2022-06-28 11:46] LABS: CREATININE 0.6 mg/dL (0.5-1.5); POTASSIUM 3.5 mmol/L (3.5-5.1)
[2022-06-28] MEDS ORDERED: LEVETIRACETAM 500 MG/5 ML SD VIAL IV SCH (13:00)
[2022-06-28] MEDS ORDERED: LEVE1000 PO (14:10)
[2022-06-28 14:36] VITALS: BP 115/76
[2022-06-28] MEDS ORDERED: ACETAMINOPHEN 500 MG TABLET PO ONE (15:00)
== END 2022-06-28 16:58 ==
LOC: EDH 10:48 → EEVIPCON 10:48 → EDH 16:58
DX: G40.909 Epilepsy, unspecified, not intractable, without status epilepticus (principal); J45.909 Unspecified asthma, uncomplicated; I10 Essential (primary) hypertension; Z79.899 Other long term (current) drug therapy; Z88.0 Allergy status to penicillin
CPT/HCPCS: 99284; 96365; 96366; 96375; 80185; 80048; 84703; 85025; 82948; 36415; J1953

== ENCOUNTER 2022-06-30 12:29 | Emergency (ER) | payer OTHER ==
[~2022-06-30] VITALS: Ht 154.9 cm; Wt 81.6 kg
[~2022-06-30 12:29] MED LIST changes: +LEVE1000 PO
[2022-06-30] MEDS ORDERED: PHENYTOIN SODIUM 100 MG ERCAP PO SCH (13:00)
[2022-06-30 13:19] LABS: HCG,QUALITATIVE URINE NEGATIVE (NEGATIVE)
[2022-06-30 13:20] LABS: BASOPHILS % (AUTO) 0.5 % (0.0-5.0); EOSINOPHILS % (AUTO) 1.9 % (0.0-8.0); HEMATOCRIT 36.3 % (36-48); LYMPHOCYTES % (AUTO) 21.5 % (21.0-51.0); MEAN CORPUSCULAR HEMOGLOBIN 26.5 pg (27.0-33.0); MEAN CORPUSCULAR HGB CONC 31.7 g/dL (32.0-36.0); MEAN CORPUSCULAR VOLUME 83.6 fL (79-99); MONOCYTES % (AUTO) 6.9 % (3.0-13.0); PLATELET COUNT (AUTO) 276 K/uL (130-400); RED BLOOD CELL COUNT(AUTO) 4.34 MIL/uL (4.00-5.50); RED CELL DISTRIBUTION WIDTH 13.9 % (11.0-15.5); WHITE BLOOD COUNT (AUTO) 6.2 K/uL (4.8-10.8)
[2022-06-30 13:21] LABS: APPEARANCE,URINE CLEAR (CLEAR); BILIRUBIN,URINE NEGATIVE (NEGATIVE); COLOR,URINE STRAW (YELLOW); GLUCOSE, URINE (UA) NEGATIVE (NEGATIVE); KETONES,URINE NEGATIVE (NEGATIVE); LEUKOCYTE ESTERASE ,URINE SMALL Leu/uL (NEGATIVE); NITRATE,URINE NEGATIVE (NEGATIVE); OCCULT BLOOD,URINE NEGATIVE (NEGATIVE); PROTEIN,URINE NEGATIVE (NEGATIVE); UROBILINOGEN,URINE 0.2 mg/dL (0.2-1.0)
[2022-06-30 13:30] LABS: CREATININE 0.6 mg/dL (0.5-1.5); POTASSIUM 3.9 mmol/L (3.5-5.1)
[2022-06-30 13:35] LABS: ALBUMIN 3.3 g/dL (3.5-5.0); PHENYTOIN (DILANTIN) 25.2 mcg/mL (10.0-20.0); TOTAL PROTEIN, SERUM 6.6 g/dL (6.0-8.3)
[2022-06-30 13:55] LABS: BACTERIA,URINE Few /HPF (None Seen); RBC,URINE None Seen /HPF (0-1); WBC,URINE 0-1 /HPF (0-1)
[2022-06-30] MEDS ORDERED: LEVETIRACETAM 1,500 MG in 0.9%NACL 100ML 100 ML IV SCH (14:00)
[2022-06-30] MEDS ORDERED: LEVE-43 PO (14:51)
[2022-06-30 15:03] VITALS: BP 148/89
== END 2022-06-30 15:14 | disposition home or self-care (01) ==
LOC: EDH 12:29
DX: G40.909 Epilepsy, unspecified, not intractable, without status epilepticus (principal); J45.909 Unspecified asthma, uncomplicated; I10 Essential (primary) hypertension; E66.9 Obesity, unspecified; Z68.34 Body mass index [BMI] 34.0-34.9, adult
CPT/HCPCS: 99284; 96365; 80185; 84484; 80053; 85025; 81001; 81025; 36415; J1953

== ENCOUNTER 2022-07-02 15:40 | Emergency (ER) | payer OTHER ==
[~2022-07-02] VITALS: Ht 152.4 cm; Wt 86.2 kg
[2022-07-02 16:27] LABS: BASOPHILS % (AUTO) 0.7 % (0.0-5.0); EOSINOPHILS % (AUTO) 2.2 % (0.0-8.0); LYMPHOCYTES % (AUTO) 28.9 % (21.0-51.0); MEAN CORPUSCULAR HEMOGLOBIN 26.8 pg (27.0-33.0); MEAN CORPUSCULAR HGB CONC 32.3 g/dL (32.0-36.0); MEAN CORPUSCULAR VOLUME 82.9 fL (79-99); MONOCYTES % (AUTO) 10.2 % (3.0-13.0); NEUTROPHILS % (AUTO) 57.8 % (40.0-77.0); PLATELET COUNT (AUTO) 266 K/uL (130-400); RED BLOOD CELL COUNT(AUTO) 4.22 MIL/uL (4.00-5.50); RED CELL DISTRIBUTION WIDTH 14.1 % (11.0-15.5); WHITE BLOOD COUNT (AUTO) 4.6 K/uL (4.8-10.8)
[2022-07-02 16:40] LABS: CREATININE 0.6 mg/dL (0.5-1.5); POTASSIUM 3.6 mmol/L (3.5-5.1)
[2022-07-02 16:51] LABS: ALBUMIN 3.2 g/dL (3.5-5.0); TOTAL PROTEIN, SERUM 6.6 g/dL (6.0-8.3)
[2022-07-02] MEDS ORDERED: LEVETIRACETAM 500 MG/5 ML SD VIAL IV STA (17:02)
[2022-07-02 17:55] LABS: AMPHET/METH SCREEN,URINE NEGATIVE (NEGATIVE); BARBITURATE SCREEN, URINE POSITIVE (NEGATIVE); BENZODIAZEPINES SCREEN,URINE NEGATIVE (NEGATIVE); CANNABINOID SCREEN,URINE NEGATIVE (NEGATIVE); COCAINE SCREEN,URINE NEGATIVE (NEGATIVE); PHENCYCLIDINE SCREEN,URINE NEGATIVE (NEGATIVE)
[2022-07-02 19:22] VITALS: BP 125/68
== END 2022-07-02 19:32 | disposition home or self-care (01) ==
LOC: EDH 16:01
DX: G40.909 Epilepsy, unspecified, not intractable, without status epilepticus (principal); J45.909 Unspecified asthma, uncomplicated; I10 Essential (primary) hypertension; Z79.899 Other long term (current) drug therapy; Z88.0 Allergy status to penicillin
CPT/HCPCS: 99284; 96365; 70450; 80185; 80053; 80305; 85025; 81025; 36415; 80177; J1953

== ENCOUNTER 2022-07-08 20:47 | Emergency (ER) | payer OTHER ==
[~2022-07-08] VITALS: Ht 154.9 cm; Wt 81.6 kg
[2022-07-08] MEDS ORDERED: LEVETIRACETAM 500 MG TABLET PO ONE (23:49)
[2022-07-09] MEDS ORDERED: LEVETIRACETAM 500 MG TABLET PO SCH
[2022-07-09 00:02] VITALS: BP 129/73
== END 2022-07-09 00:12 | disposition home or self-care (01) ==
LOC: EDH 20:47
DX: G40.909 Epilepsy, unspecified, not intractable, without status epilepticus (principal); Z88.0 Allergy status to penicillin; Z79.899 Other long term (current) drug therapy
CPT/HCPCS: 36415; 80177; 82550

== ENCOUNTER 2022-07-23 07:37 | Emergency (ER) | payer OTHER ==
[2022-07-23 08:09] LABS: BASOPHILS % (AUTO) 0.8 % (0.0-5.0); EOSINOPHILS % (AUTO) 2.6 % (0.0-8.0); HEMATOCRIT 35.2 % (36-48); LYMPHOCYTES % (AUTO) 29.1 % (21.0-51.0); MEAN CORPUSCULAR HEMOGLOBIN 26.8 pg (27.0-33.0); MEAN CORPUSCULAR HGB CONC 32.4 g/dL (32.0-36.0); MEAN CORPUSCULAR VOLUME 82.8 fL (79-99); MONOCYTES % (AUTO) 7.3 % (3.0-13.0); NEUTROPHILS % (AUTO) 59.8 % (40.0-77.0); PLATELET COUNT (AUTO) 263 K/uL (130-400); RED BLOOD CELL COUNT(AUTO) 4.25 MIL/uL (4.00-5.50); RED CELL DISTRIBUTION WIDTH 14.3 % (11.0-15.5); WHITE BLOOD COUNT (AUTO) 4.9 K/uL (4.8-10.8)
[2022-07-23 08:45] LABS: ALBUMIN 3.2 g/dL (3.5-5.0); CREATININE 0.6 mg/dL (0.5-1.5); POTASSIUM 3.3 mmol/L (3.5-5.1); TOTAL PROTEIN, SERUM 6.3 g/dL (6.0-8.3)
[2022-07-23 09:03] LABS: PHENYTOIN (DILANTIN) 22.9 mcg/mL (10.0-20.0)
[2022-07-23] MEDS ORDERED: LEVETIRACETAM 500 MG TABLET PO SCH (09:30)
[2022-07-23 09:49] VITALS: BP 119/66
== END 2022-07-23 09:50 | disposition home or self-care (01) ==
LOC: EDH 07:37
DX: G40.909 Epilepsy, unspecified, not intractable, without status epilepticus (principal); Z88.0 Allergy status to penicillin; Z79.899 Other long term (current) drug therapy
CPT/HCPCS: 36415; 80053; 80185; 85025

== ENCOUNTER 2022-07-26 16:49 | Emergency (ER) | payer OTHER ==
[~2022-07-26] VITALS: Ht 154.9 cm; Wt 90.7 kg
[2022-07-26] MEDS ORDERED: ACETAMINOPHEN 500 MG TABLET PO ONE (17:00)
[2022-07-26] MEDS ORDERED: PHENYTOIN 100MG (50MG/ML) INJ 100 MG/2 ML ML IV SCH (17:00)
[2022-07-26] MEDS ORDERED: TETANUS/DIPHTHERIA TOXOID [ADULT] 0.5 ML VIAL IM ONE (17:00)
[2022-07-26] MEDS ORDERED: LORAZEPAM 2 MG/ML 1 ML VIAL IVP ONE (17:00)
[2022-07-26 17:17] LABS: BASOPHILS % (AUTO) 0.4 % (0.0-5.0); EOSINOPHILS % (AUTO) 2.2 % (0.0-8.0); HEMATOCRIT 32.5 % (36-48); LYMPHOCYTES % (AUTO) 24.7 % (21.0-51.0); MEAN CORPUSCULAR HGB CONC 32.3 g/dL (32.0-36.0); MEAN CORPUSCULAR VOLUME 83.5 fL (79-99); MONOCYTES % (AUTO) 8.2 % (3.0-13.0); NEUTROPHILS % (AUTO) 64.1 % (40.0-77.0); PLATELET COUNT (AUTO) 254 K/uL (130-400); RED BLOOD CELL COUNT(AUTO) 3.89 MIL/uL (4.00-5.50); RED CELL DISTRIBUTION WIDTH 13.9 % (11.0-15.5); WHITE BLOOD COUNT (AUTO) 4.6 K/uL (4.8-10.8)
[2022-07-26 17:26] LABS: CREATININE 0.5 mg/dL (0.5-1.5); POTASSIUM 3.8 mmol/L (3.5-5.1)
[2022-07-26] MEDS ORDERED: PHENYTOIN SODIUM 250MG (50 MG/ML) VIAL ONE (17:27)
[2022-07-26] MEDS ORDERED: COMPOUND IV MISC 1 EACH IVSOLN MISC PRN (17:30)
[2022-07-26 17:31] LABS: ALBUMIN 3.2 g/dL (3.5-5.0); PHENYTOIN (DILANTIN) 19.1 mcg/mL (10.0-20.0); TOTAL PROTEIN, SERUM 6.3 g/dL (6.0-8.3)
[2022-07-26 17:32] LABS: APPEARANCE,URINE CLEAR (CLEAR); BILIRUBIN,URINE NEGATIVE (NEGATIVE); COLOR,URINE LIGHT-YELLOW (YELLOW); GLUCOSE, URINE (UA) NEGATIVE (NEGATIVE); KETONES,URINE NEGATIVE (NEGATIVE); LEUKOCYTE ESTERASE ,URINE 500 Leu/uL (NEGATIVE); NITRATE,URINE NEGATIVE (NEGATIVE); OCCULT BLOOD,URINE NEGATIVE (NEGATIVE); PROTEIN,URINE NEGATIVE (NEGATIVE); UROBILINOGEN,URINE 0.2 mg/dL (0.2-1.0)
[2022-07-26 17:36] LABS: BACTERIA,URINE RARE /HPF (None Seen); MUCUS,URINE RARE LPF (None Seen); SQUAMOUS EPITHELIAL CELL,UR MOD /HPF (0-2)
[2022-07-26] MEDS ORDERED: CEFTRIAXONE 1G VIAL IVP ONE (18:00)
[2022-07-26 19:00] VITALS: BP 130/89
[2022-07-26] MEDS ORDERED: LEVETIRACETAM 1,500 MG in 0.9%NACL 100ML 100 ML IV SCH (22:00)
== END 2022-07-26 19:39 | disposition home or self-care (01) ==
LOC: EDH 16:49 → EEVIPCON 16:49 → EDH 19:39
DX: S16.1XXA Strain of muscle, fascia and tendon at neck level, initial encounter (principal); S00.81XA Abrasion of other part of head, initial encounter; G40.909 Epilepsy, unspecified, not intractable, without status epilepticus; W18.39XA Other fall on same level, initial encounter; Y93.89 Activity, other specified; Y92.89 Other specified places as the place of occurrence of the external cause; Y99.8 Other external cause status
CPT/HCPCS: 99285; 70450; 96365; 96375; 82550; 80185; 80053; 84703; 85025; 87077; 87088; 87186; 81001; 36415; 90714; 72125; 96368; 90471; 80177; J1953; J0696; J1165; J2060